=== PATIENT | male | born 1950 | race African-American/Black ===

== ENCOUNTER 2021-11-02 13:34 | Inpatient (IN) | payer MEDICARE, MEDICAID ==
[~2021-11-02] VITALS: Ht 167.6 cm; Wt 79.4 kg
--- NOTE | 2021-11-02 13:52 | NUR ---
PT BIB SELF FOR MEDICAL EVAL PRIOR TO GOING TO A "SOBER LIVING PLACE." PT REPORTS BP AT HOME THIS MORNING WAS IN THE 190s. REPORTS SLIGHT HEADACHE RATED 2/10. DENIES BLURRY VISION AT THIS TIME. AAOX4, AMBULATORY, BREATHING EVEN AND UNLABORED, PULSES 2+ BILATERALLY, ON MONITOR, BP 169/111.
--- NOTE | 2021-11-02 14:43 | NUR ---
CALLED [facility] ([id number]) FOR PT'S HOME MEDS WITH NO RESPONSE. . REFUGIO JURADO AWARE
[2021-11-02 15:37] LABS: BASOPHILS % (AUTO) 0.5 % (0.0-2.0); CALCIUM, SERUM 8.8 mg/dL (8.5-10.1); CREATININE 0.9 mg/dL (0.6-1.3); EOSINOPHILS % (AUTO) 1.9 % (0.0-6.0); HEMATOCRIT 50 % (39-51); HEMOGLOBIN 16.7 g/dL (13.5-17.5); LYMPHOCYTES # (AUTO) 2.3 K/uL (0.8-4.8); LYMPHOCYTES % (AUTO) 31.7 % (20.0-44.0); MEAN CORPUSCULAR HGB CONC 34 g/dl (31.0-36.0); MEAN CORPUSCULAR VOLUME 91 fL (80-96); MONOCYTES # (AUTO) 0.4 K/uL (0.1-1.30); MONOCYTES % (AUTO) 5.6 % (2.0-12.0); NEUTROPHILS # (AUTO) 4.4 K/uL (1.8-8.9); NEUTROPHILS % (AUTO) 60.3 % (43.0-81.0); PLATELET COUNT (AUTO) 120 K/uL (150-450); POTASSIUM 3.3 mmol/L (3.5-5.1); RED BLOOD CELL COUNT(AUTO) 5.49 MIL/uL (4.5-6.0); WHITE BLOOD COUNT (AUTO) 7.2 K/uL (4.3-11.0)
[2021-11-02] MEDS ORDERED: POTASSIUM CHLORIDE 20 MEQ TAB.PRT.SR PO ONE ×2 (15:59→16:00)
[2021-11-02] MEDS ORDERED: AMLO-212 PO (16:57)
[2021-11-02] MEDS ORDERED: HYDR25TA4 PO (16:57)
[2021-11-02] MEDS ORDERED: ALEN70TA80 PO (16:57)
[2021-11-02] MEDS ORDERED: TRAZ-182 PO (16:57)
--- NOTE | 2021-11-02 17:20 | NUR ---
PATIENT LAYING COMFORTABLY IN BED. ON MONITOR
--- NOTE | 2021-11-02 17:27 | NUR ---
COVID SAMPLE OBTAINED AND SENT TO LAB
--- NOTE | 2021-11-02 18:30 | NUR ---
ROOM 312-1
--- NOTE | 2021-11-02 18:40 | NUR ---
REPORT GIVEN TO BOUCHRA LÓPEZ
--- NOTE | 2021-11-02 18:50 | NUR ---
MS LITHOGRAPHER APPRENTICE NOTE RECEIVED PATIENT AT THIS TIME BY ER. RECEIVED REPORT FROM, RENE COPELAND IN ER. PT A/O X 4. NO SOB. ON ROOM AIR TOLERATING WELL. ORIENTED PT TO UNIT, ROOM, STAFF AND CALL LIGHT. SAFETY MEASURES IMPLEMENTED. BED LOCKED WITH SIDE RAILS UP X 2. PT ARRIVED TO UNIT WITH NO IV ACCESS. WILL ENDORSE CONTINUITY OF CARE TO ONCOMING ARMY MANAGER NURSE.
--- NOTE | 2021-11-02 19:15 | NUR ---
RN NOTE RECEIVED PT UP/AMBULATING INSIDE HIS ROOM, DENIES ANY PAIN AT THIS TIME. ABLE TO VERBALIZE ALL NEEDS. RESPIRATIONS EVEN/UNLABORED. ON ROOM AIR. PT IN NO ACUTE DISTRESS. SAFETY MEASURES IN PLACE. WILL CONT TO MONITOR.
[2021-11-02] MEDS ORDERED: ZOLPIDEM TARTRATE 5 MG TABLET PO PRN (20:00)
[2021-11-02] MEDS ORDERED: MAGNESIUM HYDROXIDE 30 ML UDC PO PRN (20:00)
[2021-11-02] MEDS ORDERED: ALPRAZOLAM 0.25 MG TABLET PO PRN (20:00)
[2021-11-02] MEDS ORDERED: ONDANSETRON HCL/PF 4 MG/2 ML VIAL IVP PRN (20:00)
[2021-11-02] MEDS: AMLODIPINE BESYLATE 5 MG TABLET PO SCH (20:10)
--- NOTE | 2021-11-02 20:10 | NUR ---
RN NOTE BP 180/101. PT STATES HE HASN'T TAKEN HIS BP MEDS TODAY. AMLODIPINE BESYLATE 5MG GIVEN ORDERED. WILL CONT TO MONITOR.
--- NOTE | 2021-11-02 21:00 | NUR ---
RN NOTE PT SLEEPING SOUNDLY AT THIS TIME. WILL CONT TO MONITOR.
[2021-11-02] MEDS: TRAZODONE 50 MG TABLET PO SCH (21:56)
--- NOTE | 2021-11-02 22:00 | NUR ---
RN NOTE BP 144/82 AT THIS TIME. PT IN NO DISTRESS.
--- NOTE | 2021-11-03 07:01 | NUR ---
RN CLOSING NOTE PT SLEPT WELL DURING THE NIGHT. NO C/O OF ANY PAIN/DISCOMFORT. ON ROOM AIR AND ANDREZ WELL. RESPIRATIONS EVEN/UNLABORED. PT IN NO ACUTE DISTRESS. SAFETY MEASURES MAINTAINED. ALL NEEDS ATTENDED TO.
[2021-11-03 07:15] LABS: BASOPHILS % (AUTO) 0.5 % (0.0-2.0); EOSINOPHILS % (AUTO) 2.8 % (0.0-6.0); HEMATOCRIT 45 % (39-51); LYMPHOCYTES # (AUTO) 2.1 K/uL (0.8-4.8); MEAN CORPUSCULAR HGB CONC 33 g/dl (31.0-36.0); MEAN CORPUSCULAR VOLUME 91 fL (80-96); MONOCYTES # (AUTO) 0.5 K/uL (0.1-1.30); MONOCYTES % (AUTO) 8.9 % (2.0-12.0); NEUTROPHILS # (AUTO) 2.7 K/uL (1.8-8.9); NEUTROPHILS % (AUTO) 49.8 % (43.0-81.0); PLATELET COUNT (AUTO) 118 K/uL (150-450); RED BLOOD CELL COUNT(AUTO) 4.95 MIL/uL (4.5-6.0); WHITE BLOOD COUNT (AUTO) 5.5 K/uL (4.3-11.0)
[2021-11-03 07:22] LABS: CALCIUM, SERUM 8.4 mg/dL (8.5-10.1); MAGNESIUM 1.9 mg/dL (1.8-2.4); POTASSIUM 3.6 mmol/L (3.5-5.1)
--- NOTE | 2021-11-03 08:00 | NUR ---
m/s global head advertiser solutions: initial assessment received pt in bed awake, a/ox4. no c/o pain, palomino, n/v, or any discomfort. pt has no iv line. instructed to call for assistance.
[2021-11-03 08:13] VITALS: BP 161/96
[2021-11-03] MEDS: AMLODIPINE BESYLATE 5 MG TABLET PO SCH (08:25)
[2021-11-03] MEDS: HYDROCHLOROTHIAZIDE 25 MG TABLET PO SCH (08:26)
[2021-11-03] MEDS ORDERED: AMLO-213 PO (12:48)
--- NOTE | 2021-11-03 13:00 | NUR ---
m/s impregnating machine operator: md visit seen by dr. gonzales with order to dc home. order acknowledged.
--- NOTE | 2021-11-03 13:55 | NUR ---
m/s suspender cutter: notes pt dressed up with his back pack and about to leave and saying the doctor discharge me. check the order and pt for discharge home. ask pt to stay and wait for d'c papers, but pt wants to leave immediately because his crop picker is waiting for him.
--- NOTE | 2021-11-03 14:15 | NUR ---
m/s certified endoscopy technician: notes discharge instructions with e script prescription given and pt verbalized understanding. pt has no h/l/iv in place. pt's ride is waiting by the emergency parking space.
--- NOTE | 2021-11-03 14:30 | NUR ---
m/s covering machine operator: notes discharge home in stable condition accompanied by friend via private car. Addendum: 11/03/21 at 1706 by ARNAUD FALL LVN above charting error.
--- NOTE | 2021-11-03 16:45 | NUR ---
m/s adzing and boring machine operator: notes per case management notes, pt for d'c planning to snf. ordered clarified with dr. gonzales and per dr. gonzales pt needs placement. hetal (sister) aware. pt aware.
--- NOTE | 2021-11-03 19:10 | NUR ---
m/s hot mill shearer: notes bedside report given to rakel (edgar) for continuity of care.
--- NOTE | 2021-11-03 19:47 | NUR ---
RN NOTE PATIENT ALERT AND ORIENTED X4, ON ROOM AIR, NO S/S OF RESPIRATORY DISTRESS. COMPLAINED OF HEADACHE, REQUESTING FOR PRN MEDICATION. WILL GIVE DUE PRN. IV ACCESS ON RIGHT HAND #22, PATENT AND INTACT. BED LOCKED AND IN LOWEST POSITION. SAFETY MEASURES MAINTAINED. CALL LIGHT WITHIN REACH. ALL NEEDS ANTICIPATED.
[2021-11-03 20:00] VITALS: BP 136/84
[2021-11-03] MEDS: ACETAMINOPHEN 325 MG TABLET PO PRN (20:10)
[2021-11-03] MEDS: TRAZODONE 50 MG TABLET PO SCH (22:07)
--- NOTE | 2021-11-04 06:57 | NUR ---
RN NOTE PATIENT RESTING IN BED, ON ROOM AIR, NO S/S OF RESPIRATORY DISTRESS. IV ACCESS ON RIGHT HAND #22, PATENT AND INTACT. NO SIGNIFICANT CHANGES DURING THIS SHIFT. ALL NEEDS ATTENDED PROMPTLY. BED LOCKED AND IN LOWEST POSITION. SAFETY MEASURES MAINTAINED. CALL LIGHT WITHIN REACH. WILL ENDORSE TO AM SHIFT.
--- NOTE | 2021-11-04 07:55 | NUR ---
MS RN OPENING NOTE RECEIVED Pt WHILE RESTING IN BED, A/OX4, ON ROOM AIR, NO S/S OF RESPIRATORY DISTRESS. NO COMPLAINTS OF PAIN AT THIS TIME. IV ACCESS ON RIGHT HAND #22g, PATENT, INTACT, AND FLUSHES WELL. ALL NEEDS MET AT THIS TIME. SAFETY MEASURES IN PLACE: BED IS LOCKED AND IN LOWEST POSITION. CALL LIGHT AND BEDSIDE TABLE ARE WITHIN REACH. 2X SIDE RAILS UP. WILL CONTINUE TO MONITOR THROUGHOUT THE SHIFT
[2021-11-04 08:00] VITALS: BP 116/63
[2021-11-04] MEDS: HYDROCHLOROTHIAZIDE 25 MG TABLET PO SCH (08:57)
[2021-11-04] MEDS: AMLODIPINE BESYLATE 5 MG TABLET PO SCH (08:57)
[2021-11-04 16:00] VITALS: BP 140/70
--- NOTE | 2021-11-04 18:51 | NUR ---
MS RN CLOSING NOTES Pt IS LYING COMFORTABLY IN BED. A/OX4, ON ROOM AIR, NO S/S OF RESPIRATORY DISTRESS. BREATHING IS EVEN AND UNLABORED. NO COMPLAINTS OF PAIN MADE AT THIS TIME. IV ACCESS ON RIGHT HAND #22g, PATENT AND INTACT. SAFETY MEASURES KEPT IN PLACE: BED IS LOCKED AND IN LOWEST POSITION. CALL LIGHT AND BEDSIDE TABLE WITHIN REACH. 2 SIDE RAILS UP. ALL NEEDS MET AT THIS TIME. WILL ENDORSE TO GAUGE AND WEIGH MACHINE ADJUSTER
--- NOTE | 2021-11-04 19:55 | NUR ---
CASTING CLEANER OPENING NOTES RECEIVED PT IN BED, AWAKE, AOx2-3. ON RA AND TOLERATING WELL. NO SOB NOTED. NO S/SC OF RESPIRATORY DISTRESS NOTED. TELE MONITOR DETECTS SINUS RHYTHM WITH RATE OF 65.IV ACCESS NOTED IN LFA #20 RUNNING D51/2 NS @ 50 ML/HR. NG TUBE IN R NARE. BRYAN CATHETER DRAINING CLEAR, YELLOW URINE. SAFETY PRECAUTIONS IN PLACE: BED IN LOWEST, LOCKED POSITION, SIDERAILS UPx2, AND BRAKES ON. TABLE AND CALL LIGHT WITHIN REACH. WILL CONTINUE TO MONITOR. Addendum: 11/04/21 at 2000 by JUAN DUBON RN WRONG PATIENT.
[2021-11-04 20:00] VITALS: BP 123/74
--- NOTE | 2021-11-04 20:02 | NUR ---
MS RN OPENING NOTES RECEIVED PT IN BED, AWAKE. AOx4, ABLE TO MAKE NEEDS KNOWN. ON RA AND TOLERATING WELL. NO SOB NOTED. NO S/SX OF RESPIRATORY DISTRESS NOTED. IV ACCESS IN R HAND #22. IV IS INTACT, PATENT, AND FLUSHING WELL. SAFETY PRECAUTIONS IN PLACE: BED IN LOWEST, LOCKED POSITION, SIDERAILS UPx2, AND BRAKES ON. TABLE AND CALL LIGHT WITHIN REACH. WILL CONTINUE TO MONITOR.
[2021-11-04] MEDS: TRAZODONE 50 MG TABLET PO SCH (21:14)
[2021-11-05] MEDS: ACETAMINOPHEN 325 MG TABLET PO PRN (02:08)
--- NOTE | 2021-11-05 06:46 | NUR ---
MS RN CLOSING NOTES PT IN BED, ASLEEP, AWAKENS TO VERBAL STIMULI. AOx4, ABLE TO MAKE NEEDS KNOWN. ON RA AND TOLERATING WELL. NO SOB NOTED. NO S/SX OF RESPIRATORY DISTRESS NOTED. IV ACCESS IN R HAND #22. IV IS INTACT, PATENT, AND FLUSHING WELL. ALL NEEDS MET. PT KEPT CLEAN AND DRY. SAFETY PRECAUTIONS IN PLACE: BED IN LOWEST, LOCKED POSITION, SIDERAILS UPx2, AND BRAKES ON. TABLE AND CALL LIGHT WITHIN REACH. WILL ENDORSE TO ONCOMING SHIFT FOR EZIO.
[2021-11-05 08:00] VITALS: BP 134/78
[2021-11-05] MEDS: AMLODIPINE BESYLATE 5 MG TABLET PO SCH (08:22)
[2021-11-05] MEDS: HYDROCHLOROTHIAZIDE 25 MG TABLET PO SCH (08:22)
--- NOTE | 2021-11-05 15:14 | NUR ---
RN MS NOTES- HTN Pt DISCHARGED, EMT CAME TO PICK HIM UP, THEY TOOK V.S AND BP WAS 170/100. CLONIDINE ORDERED PER WILL BE ADMINISTERED TO Pt PRIOR TO LEAVING FACILITY.
[2021-11-05 15:23] VITALS: BP 170/100
[2021-11-05] MEDS ORDERED: CLONIDINE HCL 0.1 MG TABLET PO ONE (15:30)
--- NOTE | 2021-11-05 15:52 | NUR ---
MS RN NOTES: DISCHARGED Pt LEFT FLOOR WITH EMT ON [facility]. Pt WAS STABLE AND ON ROOM AIR, A/O X4. NO COMPLAINTS OF PAIN OR SIGNS OF DISTRESS. CLONIDINE WAS ADMINISTERED PO. REPORT WAS GIVEN TO RN AT [facility]. IV ON R HAND WAS REMOVED. ALL NEEDS MET WHILE THE Pt WAS HERE.
[2021-11-06] MEDS ORDERED: ALENDRONATE 70 MG TABLET PO SCH (09:00)
== END 2021-11-05 15:29 | DRG 305 ==
LOC: ER 14:10 → MED 18:36 → UNDODISIN 11-03 14:30
PROVIDERS: ADMIT Nurse Practitioner Family
DX: I16.0 Hypertensive urgency (principal); E87.6 Hypokalemia; I10 Essential (primary) hypertension; R53.1 Weakness; M25.561 Pain in right knee; Z20.822 Contact with and (suspected) exposure to COVID-19; F41.9 Anxiety disorder, unspecified; Z87.891 Personal history of nicotine dependence
CPT/HCPCS: 36415; 80048-TC; 80061-TC; 83735-TC; 84484-TC; 85025-TC; 87081-TC; 97116-TC; 97530-TC; C9803; G0378